=== PATIENT | male | born 1965 | race American Indian/Alaskan Native ===

== ENCOUNTER 2021-08-13 07:28 | Day surgery (SDC) | payer OTHER ==
[2021-08-13] MEDS ORDERED: SODIUM CHLORIDE 0.9% 500 ML 500 ML IV SCH (08:00)
[2021-08-13 08:21] LABS: Basophils % (Auto) 1.1 % (0.0-1.8); Eosinophils # (Auto) 0.2 K/mm3 (0.0-0.4); Hematocrit 41.1 % (35.5-45.6); Hemoglobin 14.3 gm/dl (11.8-15.2); Lymphocytes # (Auto) 1.7 K/mm3 (1.2-5.4); Lymphocytes % (Auto) 42.6 % (13.4-35.0); Mean Corpuscular HGB Conc 35 % (32-34); Mean Corpuscular Volume 87 fl (84-94); Monocytes # (Auto) 0.6 K/mm3 (0.0-0.8); Monocytes % (Auto) 14.7 % (0.0-7.3); Platelet Count 314 K/mm3 (140-440); Red Blood Count 4.73 M/mm3 (3.65-5.03); Red Cell Distribution Width 13.6 % (13.2-15.2)
[2021-08-13 08:31] LABS: INR 0.98 (0.87-1.13)
[2021-08-13 08:33] LABS: BUN/Creatinine Ratio 14; Blood Urea Nitrogen 14 mg/dL (9-20); Calcium 9.6 mg/dL (8.4-10.2); Hemolysis Index 5
[2021-08-13] MEDS ORDERED: ASPIRIN EC 325 MG TAB PO SCH (09:00)
[2021-08-13] MEDS ORDERED: HEPARIN/NS 5000 UNIT/500ML 1,000 ML IR ONE (09:11)
[2021-08-13] MEDS ORDERED: HEPARIN 10,000 UNITS/10 ML VIAL ONE (09:11)
[2021-08-13] MEDS ORDERED: MIDAZOLAM 2 MG/2 ML INJ ONE (09:12)
[2021-08-13] MEDS ORDERED: fentaNYL 100 MCG/2 ML INJ ONE (09:13)
[2021-08-13] MEDS ORDERED: VERAPAMIL 5 MG/2 ML INJ ONE (09:14)
[2021-08-13] MEDS ORDERED: LIDOCAINE (2%) 20 MG/1 ML VIAL 20 ML MDV INFILTRATI ONE ×3 (09:14→10:04)
[2021-08-13] MEDS ORDERED: NITROGLYCERIN SYRINGE 3 ML ONE (09:14)
[2021-08-13] MEDS ORDERED: fentaNYL 100 MCG/2 ML INJ IV ONE ×2 (09:41→10:01)
[2021-08-13] MEDS ORDERED: MIDAZOLAM 2 MG/2 ML INJ IV ONE ×3 (09:41→10:01)
[2021-08-13] MEDS ORDERED: HEPARIN 10,000 UNITS/10 ML VIAL ART-SHEATH ONE ×2 (09:42→10:06)
[2021-08-13] MEDS ORDERED: NITROGLYCERIN 600 MCG/3 ML SYRINGE ART-SHEATH ONE ×2 (09:43→10:06)
[2021-08-13] MEDS ORDERED: VERAPAMIL 5 MG/2 ML INJ ART-SHEATH ONE ×2 (09:43→10:06)
[2021-08-13] MEDS ORDERED: traMADol 50 MG TAB PO PRN (10:35)
--- NOTE | 2021-08-13 10:39 | Discharge Summary ---
Short Stay Discharge Plan Activity: advance as tolerated Weight Bearing Status: Full Weight Bearing Diet: low fat, low cholesterol, low salt Wound: keep clean and dry Special Instructions: smoking cessation, no heavy lifting (3 days) Follow up with: RACHEL BAUTISTA MD [Primary Care Provider] - 7 Days KIM SIMPSON MD [Staff Physician] - 7 Days
--- NOTE | 2021-08-13 10:52 | Cardiac Catherization Report ---
DATE OF SERVICE: 08/13/2021 REASON FOR PROCEDURE: Cardiomyopathy and left ventricular dysfunction. PROCEDURES: 1. Left heart catheterization. 2. Selective left and right coronary angiography. 3. Left ventricular angiography. 4. Sedation time start 10:01, end 10:20. DESCRIPTION OF PROCEDURE: The patient was prepped and draped in a sterile fashion after informed consent. The right radial cath site was prepped and draped after negative Aidan's test. The right radial artery was entered using Seldinger technique followed by placement of a 6-Malawian hydrophilic sheath. Routine radial cocktail was administered via the sheath. Selective left and right coronary angiography was performed using a #3.5 left Kolton and a #4 right Kol[place]. The pigtail catheter was used for left ventricular angiography. The catheters were then removed, sheath removed and hemostasis achieved using a TR band. The patient was returned to the postprocedure unit in stable condition. There were no complications. FINDINGS: HEMODYNAMICS: Left ventricular end diastolic pressure was 14 following coronary angiography. Ascending aortic pressure 115/72. There was no significant pressure gradient on pullback across the aortic valve. CORONARY ANGIOGRAPHY: Left main coronary artery was angiographically normal. The Left anterior descending artery and its diagonal branches were angiographically normal. A large ramus intermedius artery was angiographically normal. The circumflex artery was dominant and similarly free of significant disease. The right coronary artery was small, nondominant and contained no significant atherosclerosis. The left ventricle was normal in size, there was well preserved left ventricular systolic function with ejection fraction estimated at 55%. CONCLUSION: 1. Essentially angiographically normal coronary arteries in a left circumflex dominant system. 2. Well preserved left ventricular systolic function, ejection fraction 55%. RECOMMENDATIONS: Risk factor modification and medical therapy. TID: [id number] RECEIPT: [id number] PRIYA/SUGEY MYLES
[2021-08-13] MEDS ORDERED: SODIUM CHLORIDE 0.9% 1000 ML 1,000 ML IV SCH (11:00)
[2021-08-13 14:23] VITALS: BP 110/70
--- NOTE | 2021-08-19 14:36 | Electrocardiograph Report ---
[facility] Test Date: 2021-08-13 Test Time: 08:30:20 Pat Name: BIBI WHITE Department: Room: Gender: M Is Support Analyst: NIDIA : 1965 Requested By: RIGO KOVACS Order Number: [id number] Reading MD: Rigo Kovacs Measurements Intervals Groom Rate: 61 P: 48 VA: 180 QRS: -22 QRSD: 154 T: 85 QT: 458 QTc: 462 Interpretive Statements Sinus rhythm Left bundle branch block ST elevation secondary to IVCD No previous ECG available for comparison Electronically Signed On 08-19-2021 14:36:15 EDT by Rigo Kovacs
== END 2021-08-13 15:04 | disposition home or self-care (01) ==
LOC: CATHLABREC 07:28
PROVIDERS: ATTEND Internal Medicine Cardiovascular Disease
DX: R94.39 Abnormal result of other cardiovascular function study (principal); I42.9 Cardiomyopathy, unspecified; I37.1 Nonrheumatic pulmonary valve insufficiency; I34.0 Nonrheumatic mitral (valve) insufficiency; I36.1 Nonrheumatic tricuspid (valve) insufficiency; I10 Essential (primary) hypertension; Z79.82 Long term (current) use of aspirin; Z79.899 Other long term (current) drug therapy; Z98.890 Other specified postprocedural states
CPT/HCPCS: 36415; 80048; 85025; 85610; 85730; 93005; 93306; 93458; 99156; C1769; C1894; J1644; J2250; J3010; J7040; Q9967